=== PATIENT | female | born 1970 | race Caucasian/White ===

== ENCOUNTER 2023-07-19 10:14 | Outpatient (CLI) | payer BC, SELFPAY ==
--- NOTE | 2023-07-19 10:35 | ECG_ITS ---
Measurements Intervals [place] Rate: 75 P: 67 OK: 140 QRS: 76 QRSD: 85 T: 47 QT: 367 QTc: 412 Interpretive Statements SINUS RHYTHM POSSIBLE LEFT ATRIAL ENLARGEMENT INCOMPLETE RIGHT BUNDLE BRANCH BLOCK BASELINE ARTIFACT- II, AVR, AVL, AVF BORDERLINE ECG NO PREVIOUS ECG AVAILABLE FOR COMPARISON Electronically Signed On 07-19-2023 10:59:52 CDT by Slade Mitchell D.O.
[2023-07-19 11:30] LABS: Hematocrit 41.6 % (37.0-47.0); Hemoglobin 13.6 g/dL (12.0-15.0); Mean Corpuscular HGB Conc 32.7 g/dl (32-36); Mean Corpuscular Volume 97.9 fl (80-100); Mean Platelet Volume 10.6 fl (7.4-10.4); Platelet Count Result 221 k/mm3 (150-375); Red Blood Count 4.25 M/mm3 (4.2-5.4); Red Cell Distribution Width 12.1 % (11.5-14.5); White Blood Count 4.7 K/mm3 (4.5-10.0)
[2023-07-19 11:42] LABS: INR 0.9; Prothrombin Time 12.1 Seconds (11.1-14.7)
[2023-07-19 11:43] LABS: Partial Thromboplastin Time 27.7 SECONDS (22.3-36.8)
[2023-07-19 11:47] LABS: Anion Gap 6 mmol/L (8-16); Blood Urea Nitrogen 17 mg/dL (7-17); Calcium 9.7 mg/dL (8.4-10.2); Carbon Dioxide 30 mmol/L (22-30); Chloride 103 mmol/L (98-107); Estimated Glomerular Filt Rate > 60; Glucose 101 mg/dL (65-110); Potassium 4.4 mmol/L (3.4-5.0); Sodium 139 mmol/L (137-145)
[2023-07-19 12:18] LABS: Appearance Urine Clear (Clear); Bilirubin Urine Negative (Negative); Blood Urine Negative (Negative); Color Urine Yellow (Yellow); Glucose Urine UA Negative (Negative); Ketones Urine Negative (Negative); Leukocyte Esterase Ur Negative LEU/UL (Negative); Nitrate Urine Negative (Negative); Protein Urine Negative (Negative); Specific Grav Ur 1.006 (1.001-1.035); Urobilinogen Urine 0.2 mg/dL (<2.0)
[2023-07-19 12:29] LABS: Add Urine Microscopic? NO
== END 2023-07-19 10:15 | disposition home or self-care (01) ==
LOC: ANHSURGERY 10:23
PROVIDERS: Visit Provider Neurological Surgery
DX: M48.02 Spinal stenosis, cervical region (principal); Z01.818 Encounter for other preprocedural examination; I45.10 Unspecified right bundle-branch block
CPT/HCPCS: 36415; 80048; 81003; 85027; 85610; 85730; 86850; 86900; 86901; 93005

== ENCOUNTER 2023-07-23 02:27 | Day surgery (SDC) | payer BC, SELFPAY ==
[2023-07-16 10:47] VITALS: BMI 25.6
--- NOTE | 2023-07-16 10:52 | PC.NURSE ---
Report to the Outpatient Waiting Room, entrance under the green pavilion located off [facility], at time 10:00 on date 07/23/23. Planned Procedure Time: 12:00. Time changes happen often and if your time is changed the preop area will call you the afternoon before. - You and your visitor will be asked to self-screen and do not enter if you have any COVID symptoms. - A mask is optional within the hospital at this time. Patients may have clear liquids (water, carbonated beverages, clear teas, apple juice) until 3 hours prior to surgery (9:00) with a maximum of 20 ounces. - No food from midnight until time of surgery Take the following medications with a SIP of water the morning of surgery: N/A DO NOT STOP ANY OF YOUR OTHER PRESCRIPTION MEDICATIONS PRIOR TO SURGERY ?EXCEPT THE FOLLOWING Medications to discontinue per physician: N/A Date to take last dose: N/A Please no make-up, nail latvian, hairspray, perfume, deodorant, or body powder the day of surgery. No jewelry (including any body piercings) or valuables the day of surgery, leave them at home. Please take a shower or bath the night before, or the morning of, surgery with an antibacterial soap. Wear comfortable, loose fitting clothing. - Jewelry must be removed prior to entering the operating room. Rings and piercings that are not removed may be cut off. - The hospital will not accept responsibility for valuables. - Please leave all valuables, including medications, at home the day of surgery. If you are going home after surgery, a licensed peg driver must drive you home. - NO public transportation without another adult if you receive anesthesia. - We recommend that an adult stay with you for 24 hours following discharge. - We also recommend that you do not drive, make important decision, drink alcoholic beverages, or take any drugs that were not prescribed by your health care provider for at least 24 hours after your discharge time. Follow any additional instructions given to you from your surgeon. If you or anyone in your household have experienced Covid symptoms in the past week, please notify your surgeon or the nurse liaison at the phone number below for possible testing. Telephone instructions given to NAZ Vargas and asked if any additional questions and then verbalized understanding. Patient advised to call surgeon office or pre surgery nurse liaison [phone] if any additional questions.
[2023-07-23] VITALS (8 sets, daily range): BP systolic 108–120; BP diastolic 66–88; PULSE 53–95; RESP 12–20; TEMP 36.3; O2SAT 100
--- NOTE | ~2023-07-23 | XR_ITS ---
EXAMINATION: XR fluoroscopy no charge DATE: 07/23/2023 14:01 INDICATION: C5-C6 discectomy and anterior spinal fusion TECHNIQUE: Single lateral fluoroscopic image of the cervical spine was obtained during procedure perf ormed by Dr. Meyer. Radiologist was not present for the imaging or procedure. The amount of fluoro scopy time used during this procedure was 0.1 minutes. COMPARISON: None. FINDINGS: Images demonstrate C5-C6 discectomy and anterior spinal fusion with interbody bone graft cage and bon e graft material and anterior plate and screw fixation. Alignment appears normal. No fractures identi fied. Endotracheal tube extends to the pharynx into the visualized cervical trachea. IMPRESSION: 1. Fluoroscopy utilized during C5-C6 discectomy and instrumented anterior spinal fusion. See procedur e note for further detail. Reviewed, dictated and finalized at location A. IMPRESSION: 1. Fluoroscopy utilized during C5-C6 discectomy and instrumented anterior spina l fusion. See procedure note for further detail.
--- NOTE | 2023-07-23 11:14 | WPDANESEPPF ---
Anes - Initial Pre Proc Eval Procedure: Operation Date: 07/23/23 12:00 Proposed Procedures p Right C5-6 Anterior Cervical Discectomy and Fusion - J Luis Meyer MD Date/Time: 07/23/23 11:14 Surgeon: J Luis Meyer MD Pre Op Diagnosis: Foraminal Stenosis Patient Data Age: 53 Gender: F Height: 1.57 m Weight: 64.7 kg Last Vital Signs Temp 97.3 F L 07/23/23 10:25 Pulse 70 07/23/23 10:25 Resp 16 07/23/23 10:25 BP 118/69 07/23/23 10:25 Pulse Ox 100 07/23/23 10:25 O2 Del Method Room Air 07/23/23 10:25 Allergies Allergy/AdvReac Type Severity Reaction Status Date / Time No Known Allergies Allergy Verified 07/23/23 10:45 Home Medications Medication Instructions Recorded Confirmed Type No Home Medications 05/13/23 07/23/23 History Patient hx anesthesia problems: none Family hx anesthesia problems: none Results Review: All pre-operative results and documents have been reviewed as part of the pre-operative evaluation. 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 Martha has had 4 pregnancies resulting in 4 live births. Had a hysterectomy in 2020. date of last pap was 01/2023. 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) Gender identity (if verbalized by the patient): Female Sexual Orientation (if Verbalized by the Patient): Straight or Heterosexual Spiritual care concerns: No Anes - Eval Final PreProcedure Day of Procedure 07/23/23 11:14 Patient weight: normal Heart: regular rate and rhythm Lungs: clear to auscultation Airway: Mallampati scale class II Neurological: alert and oriented Last oral intake: >/= 8 hours ASA classification: II Emergent: no Anesthetic plan: proceed Anesthesia type and monitoring: general ETT and standard monitoring Results Review: All pre-operative results and documents have been reviewed as part of the pre-operative evaluation. Informed Consent: The patient's anesthetic plan and its attendant risks and benefits were discussed with the patient/family/POA. Questions were solicited and answers provided to the satisfaction of the patient/family/POA.
--- NOTE | 2023-07-23 11:59 | PM.IMHP ---
H&P: HPI History of Present Illness Date/Time: 07/23/23 11:59 Chief Complaint: Neck and arm pain Narrative: Martha is a 53-year-old female with neck and arm pain related to a herniated disc at C5-6 who presents for anterior cervical diskectomy and fusion at that level. She has not changed appreciably since we last saw her. She does not have specific muscle group weakness or static dermatomal numbness. She is not having bowel or bladder difficulty. Review of Systems Review of Systems: Patient denies shortness of breath, cough, fever, chills, nausea, vomiting, weight loss, weight gain, chest pain, dysuria. She has neck and arm pain as above. She is otherwise negative on 12 systems for her review of systems except as noted elsewhere. 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 Martha has had 4 pregnancies resulting in 4 live births. Had a hysterectomy in 2019. date of last pap was 01/2023. 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) Gender identity (if verbalized by the patient): Female Sexual Orientation (if Verbalized by the Patient): Straight or Heterosexual Spiritual care concerns: No Meds Home Medications and Allergies Home Medications Medication Instructions Recorded Confirmed Type No Home Medications 05/13/23 07/23/23 History Allergies Allergy/AdvReac Type Severity Reaction Status Date / Time No Known Allergies Allergy Verified 07/23/23 10:45 Vital Signs Vital Signs - 24 hr 07/23/23 10:25 Temperature 97.3 F L Pulse Rate 70 Respiratory Rate 16 Blood Pressure 118/69 Pulse Oximetry 100 Oxygen Delivery Room Air Exam Narrative: Strength is 5/5 in all muscle groups of the bilateral upper extremities. Sensation is intact to light touch throughout the upper extremities. Breathing is nonlabored Regular rate and rhythm Assessment and Plan Assessment and plan (1) Foraminal stenosis of cervical region: Code(s): M48.02 - Spinal stenosis, cervical region Status: Acute Assessment and Plan: Sunday is a 53-year-old female with a C6 radiculopathy related to foraminal stenosis at C5-6 presents for anterior cervical diskectomy and fusion. I again described to her that operation, its risks, potential benefits, the operative and postoperative course in detail and answered all her questions personally. She indicates understanding and elects to proceed with that operation.
--- NOTE | 2023-07-23 12:01 | WPDHPUPDATE1 ---
History and Physical Update Update Date/Time: 07/23/23 12:01 History and Physical has been reviewed, including an updated exam of the patient. There are NO changes in the patient's condition. Risks, benefits, and alternatives have been discussed and questions answered. Patient agrees to proceed with procedure.
[2023-07-23] MEDS: ceFAZolin 2 GM/D5W 50 ML 2 GM/50 ML BAG IVPB (12:34)
[2023-07-23] MEDS: LIDO 1%/EPINEPHRINE 1:100,000 20 ML VIAL 10 ML INFILTRATE (13:05)
--- NOTE | 2023-07-23 14:02 | W.PM.PROC2 ---
Procedure Note - Detailed Date of Procedure 07/23/23 Pre-op Diagnosis Foraminal Stenosis C5-6 Post-op Diagnosis Same Procedure Performed C5-6 complete diskectomy and interbody arthrodesis utilizing peek interbody device, local autograft and I factor, C5-6 anterior cervical plating with locking plate and screws Surgeon J Luis Meyer MD Anesthesia General Description of Procedure The patient was brought to the operating room in the supine position, was sedated, intubated placed under general anesthesia in routine fashion. The area of operation on the right side of the neck was examined, marked for incision, prepped and draped in routine sterile fashion. Incision was marked from the midline over the medial aspect of the sternocleidomastoid muscle and curvilinear transverse fashion 3 fingerbreadths above the sternal notch. This area was injected with 0.5% lidocaine with [id number] epinephrine. Intravenous antibiotics given prior to incision. Incision was made with a 10 blade scalpel down to the platysma muscle. The skin was undermined and the platysma muscle was divided longitudinally with its fibers using Metzenbaum scissors. Plane was then dissected medial to the sternocleidomastoid muscle down to the anterior aspect of spine using the finger Metzenbaum scissors. A verifying x-rays obtained to verify the level of operation. At the C5-6 level longus colli muscle was dissected free of the anterior aspect of the spine in a subperiosteal plane using Bovie cautery. Shadow Line retractor system was placed. [place] pins were placed in C5 and C6 and distraction placed over the disc space. The disc space was entered using a 15 blade scalpel cutting along the margin of the bone above and below. Curved curette and pituitary rongeur were used to remove as much cartilaginous endplate and disc material as possible down to the annulus and ligament posteriorly. A Midas Homero drill was used to bur down the endplates to bleeding cortical flat surfaces as well as to begin a bony foraminotomy bilaterally. Under microscopy the annulus and ligament were interrupted using a curved curette. A 2. Kerrison punch was then used to remove annulus, ligament, posterior osteophyte and to complete a bony foraminotomy bilaterally. This was done until a nerve hook could be placed out each foramen to confirm lack of compression. The disc space was sized and a 7 mm interbody device was chosen and filled with local autograft bone and I factor. This was then tamped into the interspace to 1-2 mm countersink. The Yasmany pins and distraction removed. The anterior osteophyte was removed with the Midas Homero drill. A 12 mm anterior plate was chosen placed in position and secured using 414 x 4 mm anterior screws advanced into the locking mechanism of the plate to hand tightness. The locking mechanism was engaged at each screw using the appropriate intermodal truck driver. A verifying x-rays obtained to verify good position of the instrumentation. The wound was then copiously irrigated with bacitracin irrigation all bleeding stopped with bipolar and Bovie cautery and Gelfoam thrombin powder. The wound was then closed in layered fashion with 3-0 Vicryl interrupted sutures in the platysma muscle and the dermis. The skin was closed with a running 4-0 Monocryl subcuticular stitch and dressed with Dermabond. The patient was allowed to wake up in the operating room was taken to the recovery room in stable condition. There were no immediate complications of this operation. All counts were reported correct in the case. Blood loss was 25 cc. The patient was neurologically at her baseline postoperatively. Estimated Blood Loss 25 IV Fluids 1,000 Complications None Condition Stable Disposition PACU [facility] Billing Surgery - Charge Forward: Surgery Billing
[2023-07-23] MEDS: LACTATED RINGERS 1,000 ML 30 ML IV CONT ×2 (14:17)
[2023-07-23] MEDS: fentaNYL CITRATE INJ (*CRX) 100 MCG/2 ML VIAL 25 MCG IV PUSH ×4 (14:24→14:49)
[2023-07-23] MEDS: oxyCODONE HCL (*CRX) 5 MG TAB IR PO (15:22)
[2023-07-23] MEDS: ONDANSETRON INJ 4 MG/2 ML VIAL IV PUSH (15:37)
[2023-07-23] MEDS: diphenhydrAMINE HCl INJ 50 MG/ML VIAL 25 MG IV PUSH (16:24)
[2023-07-23] MEDS: SCOPOLAMINE 1.5 MG PATCH TRANSDERM (16:24)
== END 2023-07-23 16:52 | disposition home or self-care (01) ==
PROVIDERS: Visit Provider Neurological Surgery
PROC: (CPT 63030; principal; 2023-07-23 12:00)
DX: M48.02 Spinal stenosis, cervical region (principal)
CPT/HCPCS: 22551; 22853; 20936; 99199; A9270; C1713; J0330; J0690; J1100; J1170; J1200; J2250; J2371; J2405; J2704; J3010; J7120

== ENCOUNTER 2024-04-01 12:03 | Outpatient (CLI) | payer BC, SELFPAY ==
[2024-04-01 12:28] LABS: Hematocrit 41.4 % (37.0-47.0); Hemoglobin 13.7 g/dL (12.0-15.0); Mean Corpuscular HGB Conc 33.1 g/dl (32-36); Mean Corpuscular Hemoglobin 31.8 pg (26-34); Mean Corpuscular Volume 96.1 fl (80-100); Mean Platelet Volume 9.2 fl (7.4-10.4); Platelet Count Result 285 k/mm3 (150-375); Red Blood Count 4.31 M/mm3 (4.2-5.4); Red Cell Distribution Width 13.1 % (11.5-14.5); White Blood Count 5.3 K/mm3 (4.5-10.0)
[2024-04-01 12:38] LABS: Appearance Urine Clear (Clear); Bilirubin Urine Negative (Negative); Blood Urine Negative (Negative); Color Urine Yellow (Yellow); Glucose Urine UA Negative (Negative); Ketones Urine Negative (Negative); Leukocyte Esterase Ur Negative LEU/UL (Negative); Nitrate Urine Negative (Negative); Protein Urine Negative (Negative); Urobilinogen Urine 0.2 mg/dL (<2.0); pH Urine 6.5 (5.0-9.0)
[2024-04-01 12:43] LABS: INR 0.9; Prothrombin Time 12.6 Seconds (11.1-14.7)
[2024-04-01 12:44] LABS: Partial Thromboplastin Time 26.7 Seconds (22.3-36.8)
[2024-04-01 12:44] LABS: Specific Grav Ur 1.004 (1.001-1.035)
[2024-04-01 12:45] LABS: Add Urine Microscopic? NO
[2024-04-01 12:45] LABS: Anion Gap 7 mmol/L (4-12); Blood Urea Nitrogen 18 mg/dL (7-17); Calcium 9.6 mg/dL (8.4-10.2); Carbon Dioxide 28 mmol/L (22-30); Chloride 100 mmol/L (98-107); Estimated Glomerular Filt Rate > 60; Glucose 98 mg/dL (65-110); Potassium 4.4 mmol/L (3.4-5.0); Sodium 135 mmol/L (137-145)
== END 2024-04-01 12:04 | disposition home or self-care (01) ==
PROVIDERS: Visit Provider Neurological Surgery
DX: Z01.818 Encounter for other preprocedural examination (principal); M46.1 Sacroiliitis, not elsewhere classified
CPT/HCPCS: 36415; 80048; 81003; 85027; 85610; 85730

== ENCOUNTER 2024-04-07 03:03 | Day surgery (SDC) | payer BC, SELFPAY ==
[2024-03-25 13:19] VITALS: BMI 26.5
--- NOTE | 2024-03-25 13:26 | PC.NURSE ---
Report to the Outpatient Waiting Room, entrance under the green pavilion located off [facility], at time _1100_ on date _01-23-0733_. Planned Procedure Time: _1pm_. Time changes happen often and if your time is changed the preop area will call you the afternoon before. - You and your visitor will be asked to self-screen and do not enter if you have any COVID symptoms. - A mask is optional within the hospital at this time. Patients may have clear liquids (water, carbonated beverages, clear teas, apple juice) until 3 hours prior to surgery with a maximum of 20 ounces. - No food from midnight until time of surgery Take the following medications with a SIP of water the morning of surgery: ___None DO NOT STOP ANY OF YOUR OTHER PRESCRIPTION MEDICATIONS PRIOR TO SURGERY ?EXCEPT THE FOLLOWING Medications to discontinue per physician ____None Date to take last dose Please no make-up, nail mozambican, hairspray, perfume, deodorant, or body powder the day of surgery. No jewelry (including any body piercings) or valuables the day of surgery, leave them at home. Please take a shower or bath the night before, or the morning of, surgery with an antibacterial soap. Wear comfortable, loose fitting clothing. - Jewelry must be removed prior to entering the operating room. Rings and piercings that are not removed may be cut off. - The hospital will not accept responsibility for valuables. - Please leave all valuables, including medications, at home the day of surgery. If you are going home after surgery, a licensed solid waste truck driver must drive you home. - NO public transportation without another adult if you receive anesthesia. - We recommend that an adult stay with you for 24 hours following discharge. - We also recommend that you do not drive, make important decision, drink alcoholic beverages, or take any drugs that were not prescribed by your health care provider for at least 24 hours after your discharge time. Follow any additional instructions given to you from your surgeon. If you or anyone in your household have experienced Covid symptoms in the past week, please notify your surgeon or the nurse liaison at the phone number below for possible testing. Telephone instructions given to _Martha__and asked if any additional questions and then verbalized understanding. Patient advised to call surgeon office or pre surgery nurse liaison [phone] if any additional questions.
[2024-04-07] VITALS (8 sets, daily range): BP systolic 106–151; BP diastolic 63–85; PULSE 51–81; RESP 11–20; TEMP 36.4–36.7; O2SAT 100
--- NOTE | ~2024-04-07 | XR_ITS ---
XR fluoroscopy no charge Indication: Removal of sacroiliac joint fusion device TECHNIQUE: Fluoroscopy used during Removal of sacroiliac joint fusion device performed by [J Luis Meyer MD] on 04/07/2024. 40 seconds of fluoroscopy time with 4 fluoroscopic images captured. FINDINGS: Correlate with procedure note. IMPRESSION: Fluoroscopy used during Removal of sacroiliac joint fusion device. Reviewed, dictated and finalized at location B.
[2024-04-07] MEDS: LACTATED RINGERS 1,000 ML 30 ML IV CONT ×2 (08:30→11:49)
--- NOTE | 2024-04-07 08:46 | WPDANESEPPF ---
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 Patient Data Age: 53 Gender: F Height: 1.57 m Weight: 68 kg Last Vital Signs Temp 98.1 F 04/07/24 08:15 Pulse 69 04/07/24 08:15 Resp 18 04/07/24 08:15 BP 124/63 04/07/24 08:15 Pulse Ox 100 04/07/24 08:15 O2 Del Method Room Air 04/07/24 08:15 Allergies Allergy/AdvReac Type Severity Reaction Status Date / Time No Known Allergies Allergy Verified 04/07/24 08:25 Home Medications Medication Instructions Recorded Confirmed Type No Home Medications 11/12/23 04/07/24 History Patient hx anesthesia problems: none Family hx anesthesia problems: none Results Review: All pre-operative results and documents have been reviewed as part of the pre-operative evaluation. 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 Martha has had 4 pregnancies resulting in 4 live births. Had a hysterectomy in 2020. date of last pap was 01/2023. Smoking status: Never smoker Alcohol intake: current Drinks per week: 4 Alcohol use details: drinks socially Substance use: never Substance use type: does not use Do You Feel Safe in your Home?: Yes Lack of Transportation: No Lack of Food: Never True Current Housing: I Have Housing Concerned About Future Housing: No Difficulty Paying Gas/Electric Bills: No Difficulty Paying for Meds: No Currently Unemployed: No Education: Trade/Vocational Certificate Difficulty w/ Childcare or Family Care: No Living arrangements: with family Occupation/Education: occupation Additional occupation/education comments: [employer]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 ) Neurological: alert and oriented Last oral intake: >/= 8 hours ASA classification: I Emergent: no Anesthetic plan: proceed Anesthesia type and monitoring: general ETT and standard monitoring Results Review: All pre-operative results and documents have been reviewed as part of the pre-operative evaluation. Informed Consent: The patient's anesthetic plan and its attendant risks and benefits were discussed with the patient/family/POA. Questions were solicited and answers provided to the satisfaction of the patient/family/POA.
--- NOTE | 2024-04-07 09:29 | PM.IMHP ---
H&P: HPI History of Present Illness Date/Time: 04/07/24 09:29 Chief Complaint: Buttock pain Narrative: Martha is here today for removal of sacroiliac joint fusion instrumentation. She continues to have pain in left buttock worse with activity and better with rest but really present almost all the time. She does not report specific muscle group weakness or dermatomal numbness or extension of her symptoms down her legs. she is here to discuss potential definitive management of the problem. We had recently spoken with her by phone after noticing that 1 of the fixation devices on the left side across the SI joint was somewhat proud into the soft tissues of the buttock. She is not having new bowel or bladder difficulty or other constitutional problems. She is not having specific muscle group weakness or dermatomal numbness. Review of Systems Review of Systems: Const All systems reviewed & are unremarkable except as noted in HPI and below Denies chills, Denies fever(s), Denies weakness, Denies weight gain and Denies weight loss Eyes Denies change in vision and Denies diplopia ENT Reports neck pain and Denies disequilibrium Card Denies chest pain and Denies dyspnea Resp Denies cough and Denies dyspnea GI Denies abdominal pain, Denies change in bowel habits, Denies fecal incontinence and Denies vomiting Denies hematuria, Denies urinary frequency, Denies difficulty voiding, Denies dysuria, Denies urinary incontinence, Denies urinary hesitancy and Denies urinary urgency Musc Reports as per HPI, Denies abnormal gait, Denies back pain, Denies muscle weakness, Reports neck pain, Denies numbness, Reports radiating pain into limb and Denies tingling Skin/ Breast Reports system reviewed and no additional complaints, except as documented Neuro Reports as per HPI, Denies abnormal gait, Denies burning sensations, Denies numbness, Denies tingling, Denies disequilibrium and Denies weakness Psych Reports no additional complaints, Denies depression and Denies hopelessness Endo Reports no additional complaints and Denies polyuria Chon/ Lymph Reports no additional complaints Aller/ Immun Reports no additional complaints PMFSH Past Medical History Medical History Fusion congenital, 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 Martha has had 4 pregnancies resulting in 4 live births. Had a hysterectomy in 2019. date of last pap was 01/2023. Smoking status: Never smoker Alcohol intake: current Drinks per week: 4 Alcohol use details: drinks socially Substance use: never Substance use type: does not use Do You Feel Safe in your Home?: Yes Lack of Transportation: No Lack of Food: Never True Current Housing: I Have Housing Concerned About Future Housing: No Difficulty Paying Gas/Electric Bills: No Difficulty Paying for Meds: No Currently Unemployed: No Education: Trade/Vocational Certificate Difficulty w/ Childcare or Family Care: No Living arrangements: with family Occupation/Education: occupation Additional occupation/education comments: [employer]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
--- NOTE | 2024-04-07 09:32 | WPDHPUPDATE1 ---
History and Physical Update Update Date/Time: 04/07/24 09:32 History and Physical has been reviewed, including an updated exam of the patient. There are NO changes in the patient's condition. Risks, benefits, and alternatives have been discussed and questions answered. Patient agrees to proceed with procedure.
[2024-04-07] MEDS: ceFAZolin 2 GM/D5W 50 ML 2 GM/50 ML BAG IVPB (10:12)
[2024-04-07] MEDS: LIDO 1%/EPINEPHRINE 1:100,000 20 ML VIAL 10 ML INFILTRATE (10:50)
--- NOTE | 2024-04-07 11:08 | W.PM.PROC2 ---
Procedure Note - Detailed Date of Procedure 04/07/24 Pre-op Diagnosis malposition of sacro-iliac fusion device on left Post-op Diagnosis Same Procedure Performed Removal of sacroiliac fusion device on the left Surgeon J Luis Meyer MD Anesthesia General Description of Procedure The patient was brought to the operating room in the supine position, was sedated, intubated placed under general anesthesia in routine fashion. She was then turned into the prone position on gel rolls with 1 across her pelvis. The area of operation on the left buttock was examined, marked for incision, prepped and draped in routine sterile fashion. Incision was marked over the previous incision along the Um axis of the sacrum. This area was injected with 0.5% lidocaine with [id number] epinephrine. Intravenous antibiotics given prior to incision. Incision was made with a 10 blade scalpel into the subcutaneous tissues. K-wire was placed under fluoroscopy using inlet, outlet and lateral views until a cannulated the most distal sacroiliac fusion device. Once the K-wire was safely seated within the device the progressive dilators were placed over the device until the last was able to go over the and the device itself. The K-wire was extended and the appropriate special client bus driver placed down the K-wire and seated inside the fusion device. This was then screwed out of the bone and removed over the K-wire from the wound. The dilator was then also removed as was the K-wire. Inlet, outlet and lateral x-rays were taken to make sure that the device was removed and the correct device removed. The wound was then copiously irrigated with bacitracin irrigation all bleeding stopped with bipolar and Bovie cautery and Gelfoam thrombin powder. The wound was then closed in layered fashion with 3-0 Vicryl interrupted sutures in the dermis and a running 4-0 Monocryl subcuticular stitch in the skin and was dressed with Dermabond. The patient was loud wake up in the operating room was taken to the recovery room in stable condition. There were no immediate complications of this operation. All counts were reported correct at the end of the case. Blood loss was 5 cc. The patient was neurologically at her baseline postoperatively. Estimated Blood Loss 5 IV Fluids 500 Complications None Condition Stable Disposition PACU [facility] Billing Surgery - Charge Forward: Surgery Billing
[2024-04-07] MEDS: fentaNYL CITRATE INJ (*CRX) 100 MCG/2 ML VIAL 25 MCG IV PUSH ×6 (11:30→11:46)
[2024-04-07] MEDS: oxyCODONE HCL (*CRX) 5 MG TAB IR PO (12:23)
== END 2024-04-07 13:12 | disposition home or self-care (01) ==
PROVIDERS: Visit Provider Neurological Surgery
PROC: (CPT 27299; principal; 2024-04-07 09:30)
DX: T84.028A Dislocation of other internal joint prosthesis, initial encounter (principal); M46.1 Sacroiliitis, not elsewhere classified; Y83.8 Other surgical procedures as the cause of abnormal reaction of the patient, or of later complication, without mention of misadventure at the time of the procedure
CPT/HCPCS: 27299; 99199; A9270; J0690; J1100; J2250; J2405; J2704; J3010; J7120